=== PATIENT | female | born 1935 | race Caucasian/White ===

== ENCOUNTER 2016-08-17 10:21 | Day surgery (SDC) | payer OTHER ==
[~2016-08-17] VITALS: Ht 170.2 cm; Wt 84.8 kg
[~2016-08-17 10:21] MED LIST: ADULT LOW DOSE81 M1 PO; AROMASIN25 MG PO; ASCORBIC ACID250 MG PO; ASCORBIC ACID500 M3 PO; ASPIR-LOW81 MG PO; ASPIRIN81 M1 PO; ATIVAN0.5 MG PO; CARVEDILOL3.125 MG PO; CEPHALEXIN500 MG PO; CLOPIDOGREL75 MG PO; COREG25 M1 PO; COREG3.125 M1 PO; COREG6.25 M1 PO; FEMARA2.5 MG PO; FLOVENT 11120 INHALA IH; FOLIC ACID1 MG PO; FUROSEMIDE20 MG PO; GABAPENTIN100 MG PO; GLIPIZIDE5 MG PO; GLUCOPHAGE1000 MG PO; GLUCOTROL5 MG PO; Gabapentin PO; HYDROCODON-ACE1 EAC7 PO; IMODIUM MS REL1 EACH PO; K-DUR20 MEQ PO; KLOR-CON 1010 ME1 PO; LASIX40 MG PO; LEVOFLOXACIN250 MG PO; LEVOFLOXACIN750 MG PO; LISINOPRIL2.5 MG PO; LORAZEPAM0.5 MG PO; LORTAB 5-325 M1 EACH PO; MACROBID100 MG PO; METFORMIN HCL1000 MG PO; METRONIDAZOLE500 MG PO; MICRO-K10 ME2 PO; NEURONTIN100 MG PO; PLAVIX75 MG PO; POTASSIUM CHLO20 ME2 PO; PREDNISOLONE AC15 ML RIGHT EYE; PROAIR HFA8.5 GM IH; SENNA-TIME S T1 EACH PO; SILVADENE20 GM TP; SIMVASTATIN40 MG PO; TAMIFLU75 MG PO; THERAGRAN1 TABLET PO; TRAMADOL HCL50 MG PO; TYLENOL PM1 CAPLET PO; ULTRAM50 MG PO; XALATAN2.5 ML BOTH EYES; XANAX0.5 MG PO; ZANAFLEX4 M1 PO; ZESTRIL2.5 MG PO; ZOCOR40 MG PO; ZOCOR5 MG PO
[2016-08-17 11:25] LABS: POINT-OF-CARE METER ID UU14174212
[2016-08-17] MEDS ORDERED: GLIPIZIDE5 MG PO (11:40)
== END 2016-08-17 12:56 | disposition home or self-care (01) ==
LOC: PAIN 10:21 → SDC 11:00 → PAIN 12:56
PROVIDERS: Anesthesiology Pain Medicine
PROC: 015B3ZZ Destruction of Lumbar Nerve, Percutaneous Approach (ICD-10-PCS; principal; 2016-08-17)
DX: M47.896 Other spondylosis, lumbar region (principal); M54.5 Low back pain; F41.1 Generalized anxiety disorder; J44.9 Chronic obstructive pulmonary disease, unspecified; I50.9 Heart failure, unspecified; E11.9 Type 2 diabetes mellitus without complications; F17.200 Nicotine dependence, unspecified, uncomplicated
CPT/HCPCS: 82948; J1030; J2250; J3010; S0020

== ENCOUNTER 2016-09-01 16:55 | Inpatient (IN) | payer OTHER ==
[~2016-09-01] VITALS: Ht 170.2 cm; Wt 86.0 kg
[2016-09-01 17:53] LABS: HEMATOCRIT 44.6 % (36.0-46.0); MCH 30.3 PG (29.0-34.0); MCHC 32.3 G/DL (30.0-36.0); MCV 93.9 FL (83-99); MEAN PLAT.VOLUME 9.9 uM^3 (9.5-12.4); PLATELET COUNT 219 K/uL (156-360); RBC DIS.WIDTH-CV 14.3 % (11.8-14.6); RBC DIS.WIDTH-SD 49.9 % (39-53); RED BLOOD COUNT 4.75 M/uL (3.80-5.20); WHITE BLOOD COUNT 15.4 K/uL (4.1-10.2)
[2016-09-01 18:03] LABS: CHLORIDE 104 mEq/L (99-109); POTASSIUM 4.3 mEq/L (3.7-5.4); SODIUM 137 mEq/L (136-147)
[2016-09-01 18:05] LABS: GLUCOSE 172 mg/dL (70-99)
[2016-09-01 18:07] LABS: ANION GAP 12 MEQ/L (2-14)
[2016-09-01 18:09] LABS: GFR ESTIMATE (CALCULATED) 42 mL/min/
[2016-09-01 18:10] LABS: UREA NITROGEN (BUN) 26 mg/dL (9-23)
[2016-09-01 18:47] LABS: ADD MIUA? YES; BILIRUBIN SMALL; BLOOD NEGATIVE; COLOR AMBER ((YELLOW)); GLUCOSE (STRIP) NEGATIVE; KETONES 5; LEUKOCYTES SMALL; NITRITE NEGATIVE; PROTEIN (STRIP) 30; SPECIFIC GRAVITY 1.025 (1.000-1.030)
[2016-09-01 18:48] LABS: TOTAL BILIRUBIN 0.4 mg/dL (0.0-1.0)
[2016-09-01 18:49] LABS: ALKALINE PHOSPHATASE 78 IU/L (3-129)
[2016-09-01 18:52] LABS: DIRECT BILIRUBIN 0.2 mg/dL (0.0-0.3)
[2016-09-01 18:53] LABS: BACTERIA 2+ /HPF; EPITHELIAL CELLS 2+ /HPF; MUCUS 1+ /LPF; UCUL ADDED? YES; WHITE BLOOD CELLS 20-30 /HPF (0-5)
[2016-09-01] MEDS ORDERED: ZOCOR20 MG PO (22:01)
[2016-09-01] MEDS ORDERED: LOMOTIL TABLET1 EACH PO (22:02)
[2016-09-01] MEDS ORDERED: ATIVAN0.5 MG PO (22:04)
[2016-09-01] MEDS ORDERED: ZANAFLEX2 MG PO (22:05)
[2016-09-01] MEDS ORDERED: COREG3.125 M1 PO (22:05)
[2016-09-01 23:12] VITALS: BP 84/45
[2016-09-02 01:27] LABS: BASOPHIL COUNT 0.1 K/uL (0-0.1); EOSINOPHIL (%) 1.8 % (0-5); EOSINOPHIL COUNT 0.2 K/uL (0-0.3); HEMATOCRIT 41.5 % (36.0-46.0); IMMATURE GRANULOCYTE (%) 0.5 % (0.0-0.7); IMMATURE GRANULOCYTE COUNT 0.1 K/uL; INSTRUMENT ABS NEUTROPHIL CT 8.9 K/uL; MCH 30.8 PG (29.0-34.0); MCHC 32.5 G/DL (30.0-36.0); MCV 94.7 FL (83-99); MEAN PLAT.VOLUME 10.3 uM^3 (9.5-12.4); MONOCYTE (%) 5.6 % (3-12); MONOCYTE COUNT 0.7 K/uL (0-0.8); NEUTROPHIL (%) 68.7 % (45-76); NEUTROPHIL COUNT 8.9 K/uL (1.8-6.4); PLATELET COUNT 213 K/uL (156-360); RBC DIS.WIDTH-CV 14.4 % (11.8-14.6); RBC DIS.WIDTH-SD 50.1 % (39-53); RED BLOOD COUNT 4.38 M/uL (3.80-5.20)
[2016-09-02 03:42] LABS: POINT-OF-CARE METER ID UU14149397
[2016-09-02 04:36] VITALS: BP 73/39
[2016-09-02 05:15] VITALS: BP 86/48
[2016-09-02 06:19] LABS: BASOPHIL COUNT 0.1 K/uL (0-0.1); EOSINOPHIL (%) 3.1 % (0-5); EOSINOPHIL COUNT 0.3 K/uL (0-0.3); IMMATURE GRANULOCYTE (%) 0.6 % (0.0-0.7); IMMATURE GRANULOCYTE COUNT 0.1 K/uL; INSTRUMENT ABS NEUTROPHIL CT 5.6 K/uL; LYMPHOCYTE COUNT 2.4 K/uL (1.0-2.8); MCH 30.1 PG (29.0-34.0); MCHC 32.4 G/DL (30.0-36.0); MCV 92.9 FL (83-99); MEAN PLAT.VOLUME 9.8 uM^3 (9.5-12.4); MONOCYTE (%) 7.7 % (3-12); MONOCYTE COUNT 0.7 K/uL (0-0.8); NEUTROPHIL (%) 61.3 % (45-76); NEUTROPHIL COUNT 5.6 K/uL (1.8-6.4); PLATELET COUNT 179 K/uL (156-360); RBC DIS.WIDTH-CV 14.4 % (11.8-14.6); RED BLOOD COUNT 4.09 M/uL (3.80-5.20); WHITE BLOOD COUNT 9.1 K/uL (4.1-10.2)
[2016-09-02 06:25] LABS: CHLORIDE 114 mEq/L (99-109); POTASSIUM 3.9 mEq/L (3.7-5.4); SODIUM 141 mEq/L (136-147)
[2016-09-02 06:27] LABS: GLUCOSE 142 mg/dL (70-99)
[2016-09-02 06:28] LABS: ANION GAP 9 MEQ/L (2-14)
[2016-09-02 06:30] LABS: TOTAL BILIRUBIN 0.3 mg/dL (0.0-1.0)
[2016-09-02 06:31] LABS: ALKALINE PHOSPHATASE 58 IU/L (3-129); GFR ESTIMATE (CALCULATED) > 59 mL/min/
[2016-09-02 06:32] LABS: UREA NITROGEN (BUN) 17 mg/dL (9-23)
[2016-09-02 06:50] LABS: POINT-OF-CARE METER ID UU14149397
[2016-09-02 08:08] VITALS: BP 91/50
[2016-09-02 12:00] VITALS: BP 90/50
[2016-09-02 15:18] LABS: BASOPHIL COUNT 0.1 K/uL (0-0.1); EOSINOPHIL (%) 1.9 % (0-5); EOSINOPHIL COUNT 0.2 K/uL (0-0.3); HEMATOCRIT 37.6 % (36.0-46.0); IMMATURE GRANULOCYTE (%) 0.4 % (0.0-0.7); INSTRUMENT ABS NEUTROPHIL CT 4.8 K/uL; LYMPHOCYTE COUNT 2.3 K/uL (1.0-2.8); MCH 30.6 PG (29.0-34.0); MCHC 32.2 G/DL (30.0-36.0); MCV 94.9 FL (83-99); MEAN PLAT.VOLUME 9.9 uM^3 (9.5-12.4); MONOCYTE (%) 9.4 % (3-12); MONOCYTE COUNT 0.8 K/uL (0-0.8); NEUTROPHIL (%) 59.2 % (45-76); NEUTROPHIL COUNT 4.8 K/uL (1.8-6.4); PLATELET COUNT 173 K/uL (156-360); RBC DIS.WIDTH-CV 14.6 % (11.8-14.6); RED BLOOD COUNT 3.96 M/uL (3.80-5.20); WHITE BLOOD COUNT 8.1 K/uL (4.1-10.2)
[2016-09-02 15:56] VITALS: BP 100/53
[2016-09-02 16:36] LABS: POINT-OF-CARE METER ID UU14149397
[2016-09-02 18:46] LABS: BASOPHIL COUNT 0.1 K/uL (0-0.1); EOSINOPHIL (%) 2.5 % (0-5); EOSINOPHIL COUNT 0.2 K/uL (0-0.3); HEMATOCRIT 39.6 % (36.0-46.0); IMMATURE GRANULOCYTE (%) 0.4 % (0.0-0.7); INSTRUMENT ABS NEUTROPHIL CT 4.2 K/uL; LYMPHOCYTE COUNT 2.6 K/uL (1.0-2.8); MCH 30.5 PG (29.0-34.0); MCHC 32.1 G/DL (30.0-36.0); MEAN PLAT.VOLUME 10.1 uM^3 (9.5-12.4); MONOCYTE (%) 8.4 % (3-12); MONOCYTE COUNT 0.7 K/uL (0-0.8); NEUTROPHIL (%) 54.4 % (45-76); NEUTROPHIL COUNT 4.2 K/uL (1.8-6.4); PLATELET COUNT 187 K/uL (156-360); RBC DIS.WIDTH-CV 14.6 % (11.8-14.6); RBC DIS.WIDTH-SD 50.5 % (39-53); RED BLOOD COUNT 4.17 M/uL (3.80-5.20); WHITE BLOOD COUNT 7.7 K/uL (4.1-10.2)
[2016-09-02 20:43] VITALS: BP 89/56
[2016-09-03] VITALS (7 sets, daily range): BP systolic 87–119; BP diastolic 51–77
[2016-09-03 06:01] LABS: HEMATOCRIT 39.5 % (36.0-46.0); MCH 30.5 PG (29.0-34.0); MCHC 32.2 G/DL (30.0-36.0); MEAN PLAT.VOLUME 10.1 uM^3 (9.5-12.4); PLATELET COUNT 181 K/uL (156-360); RBC DIS.WIDTH-CV 14.5 % (11.8-14.6); RBC DIS.WIDTH-SD 50.6 % (39-53); RED BLOOD COUNT 4.16 M/uL (3.80-5.20)
[2016-09-03 06:24] LABS: ANION GAP 7 MEQ/L (2-14); CHLORIDE 116 MEQ/L (99-109); GFR ESTIMATE (CALCULATED) > 59 mL/min/; GLUCOSE 122 mg/dL (70-99); POTASSIUM 3.9 MEQ/L (3.7-5.4); SAMPLE HEMOLYSIS CHECK 0; SAMPLE ICTERIC CHECK 0; SAMPLE LIPEMIA CHECK 0; SODIUM 144 MEQ/L (136-147); UREA NITROGEN (BUN) 9 mg/dL (9-23)
[2016-09-03 07:07] LABS: POINT-OF-CARE METER ID UU14149397
[2016-09-03 12:12] LABS: POINT-OF-CARE METER ID UU14149397
[2016-09-03 15:55] LABS: POINT-OF-CARE METER ID UU14149397
[2016-09-04 03:17] LABS: INTERNAL CONTROL VALID? YES
[2016-09-04 03:40] LABS: C DIFF TOXIN NEGATIVE (NEGATIVE)
[2016-09-04 03:46] LABS: PROBE CHECK PASS; SPECIMEN PROCESSING CONTROL PASS
[2016-09-04 05:36] VITALS: BP 107/67
[2016-09-04 05:40] LABS: HEMATOCRIT 37.1 % (36.0-46.0); MCH 30.6 PG (29.0-34.0); MCHC 32.6 G/DL (30.0-36.0); MCV 93.7 FL (83-99); MEAN PLAT.VOLUME 10.2 uM^3 (9.5-12.4); PLATELET COUNT 173 K/uL (156-360); RBC DIS.WIDTH-CV 14.4 % (11.8-14.6); RBC DIS.WIDTH-SD 49.6 % (39-53); RED BLOOD COUNT 3.96 M/uL (3.80-5.20); WHITE BLOOD COUNT 7.4 K/uL (4.1-10.2)
[2016-09-04 06:06] LABS: ANION GAP 10 MEQ/L (2-14); CHLORIDE 115 MEQ/L (99-109); GFR ESTIMATE (CALCULATED) > 59 mL/min/; GLUCOSE 114 mg/dL (70-99); POTASSIUM 3.3 MEQ/L (3.7-5.4); SAMPLE HEMOLYSIS CHECK 0; SAMPLE ICTERIC CHECK 0; SAMPLE LIPEMIA CHECK 0; SODIUM 143 MEQ/L (136-147); UREA NITROGEN (BUN) 6 mg/dL (9-23)
[2016-09-04 06:19] LABS: POINT-OF-CARE METER ID UU14188577
[2016-09-04 08:25] VITALS: BP 103/56
[2016-09-04 11:53] LABS: POINT-OF-CARE METER ID UU14188577
[2016-09-04 15:37] LABS: POINT-OF-CARE METER ID UU13113819
[2016-09-04 16:26] VITALS: BP 94/61
[2016-09-04 20:19] VITALS: BP 188/89
[2016-09-04 20:25] VITALS: BP 96/62
[2016-09-04 23:56] VITALS: BP 103/64
[2016-09-05 06:39] LABS: POINT-OF-CARE METER ID UU14188577
[2016-09-05 07:21] VITALS: BP 138/75
[2016-09-05] MEDS ORDERED: FLAGYL500 MG PO (10:32)
[2016-09-05 11:25] LABS: HEMATOCRIT 38.8 % (36.0-46.0); MCH 30.2 PG (29.0-34.0); MCHC 32.2 G/DL (30.0-36.0); MCV 93.7 FL (83-99); MEAN PLAT.VOLUME 10.1 uM^3 (9.5-12.4); NRBC (%) 0.2 /100 WBC (0-0); PLATELET COUNT 207 K/uL (156-360); RBC DIS.WIDTH-CV 14.8 % (11.8-14.6); RBC DIS.WIDTH-SD 51.1 % (39-53); RED BLOOD COUNT 4.14 M/uL (3.80-5.20); WHITE BLOOD COUNT 8.9 K/uL (4.1-10.2)
[2016-09-05 11:55] LABS: POINT-OF-CARE METER ID UU14188577
[2016-09-05 11:56] LABS: ANION GAP 9 MEQ/L (2-14); CHLORIDE 114 MEQ/L (99-109); POTASSIUM 3.2 MEQ/L (3.7-5.4); SAMPLE HEMOLYSIS CHECK 0; SAMPLE ICTERIC CHECK 0; SAMPLE LIPEMIA CHECK 0; SODIUM 141 MEQ/L (136-147)
[2016-09-05 12:04] LABS: GFR ESTIMATE (CALCULATED) > 59 mL/min/; UREA NITROGEN (BUN) 6 mg/dL (9-23)
[2016-09-05 12:05] LABS: GLUCOSE 179 mg/dL (70-99)
== END 2016-09-05 16:15 | disposition home or self-care (01) | DRG 872 ==
LOC: EME 16:55 → 3EAST 21:57 → EDOF 21:57 → 3EAST 22:49
PROVIDERS: Emergency Medicine; Internal Medicine; Internal Medicine Gastroenterology
DX: A41.9 Sepsis, unspecified organism (principal); R65.20 Severe sepsis without septic shock; K52.9 Noninfective gastroenteritis and colitis, unspecified; N39.0 Urinary tract infection, site not specified; K55.1 Chronic vascular disorders of intestine; K92.1 Melena; N17.9 Acute kidney failure, unspecified; I13.0 Hypertensive heart and chronic kidney disease with heart failure and stage 1 through stage 4 chronic kidney disease, or unspecified chronic kidney disease; I50.9 Heart failure, unspecified; E11.22 Type 2 diabetes mellitus with diabetic chronic kidney disease; N18.3 Chronic kidney disease, stage 3 (moderate); I25.10 Atherosclerotic heart disease of native coronary artery without angina pectoris; E78.5 Hyperlipidemia, unspecified; F41.9 Anxiety disorder, unspecified; E78.00 Pure hypercholesterolemia, unspecified; J44.9 Chronic obstructive pulmonary disease, unspecified; G89.29 Other chronic pain; I71.4 Abdominal aortic aneurysm, without rupture; Z66 Do not resuscitate; K57.30 Diverticulosis of large intestine without perforation or abscess without bleeding; D12.5 Benign neoplasm of sigmoid colon; K62.1 Rectal polyp; F17.210 Nicotine dependence, cigarettes, uncomplicated; K64.8 Other hemorrhoids; Z85.3 Personal history of malignant neoplasm of breast; Z85.42 Personal history of malignant neoplasm of other parts of uterus; Z95.1 Presence of aortocoronary bypass graft; I25.2 Old myocardial infarction; Z79.82 Long term (current) use of aspirin; Z88.1 Allergy status to other antibiotic agents
CPT/HCPCS: 74177; 80048; 80053; 80069; 80076; 81003; 82948; 83605; 83630; 85025; 85025 91; 85027; 86850; 86900; 86901; 87040; 87086; 87177; 87493; 87506; 88305; 94640; 94640 76; 99202; 99281; 99285; J0696; J1200; J1815; J1956; J2405; J2920; J7030; J7040; J7050; S0028; S0030

== ENCOUNTER 2016-11-30 11:13 | Day surgery (SDC) | payer OTHER ==
[~2016-11-30] VITALS: Ht 168.9 cm; Wt 83.0 kg
[~2016-11-30 11:13] MED LIST changes: +FLAGYL500 MG PO; +GLUCOPHAGE XR750 MG PO; +K-DUR10 MEQ PO; +LOMOTIL TABLET1 EACH PO; +ZANAFLEX2 MG PO; +ZANTAC150 MG PO; +ZOCOR20 MG PO
[2016-11-30 12:33] LABS: POINT-OF-CARE METER ID UU14174212; POINT-OF-CARE USER ID AHSRSCSLC11
== END 2016-11-30 13:20 | disposition home or self-care (01) ==
LOC: PAIN 11:13 → SDC 11:45 → PAIN 13:20
PROVIDERS: Anesthesiology Pain Medicine
DX: M46.1 Sacroiliitis, not elsewhere classified (principal); M53.3 Sacrococcygeal disorders, not elsewhere classified; M47.816 Spondylosis without myelopathy or radiculopathy, lumbar region; M54.5 Low back pain; J44.9 Chronic obstructive pulmonary disease, unspecified; E11.9 Type 2 diabetes mellitus without complications; K21.9 Gastro-esophageal reflux disease without esophagitis; F41.9 Anxiety disorder, unspecified; Z85.3 Personal history of malignant neoplasm of breast; F17.210 Nicotine dependence, cigarettes, uncomplicated; E78.5 Hyperlipidemia, unspecified; I25.5 Ischemic cardiomyopathy; M54.6 Pain in thoracic spine; Z79.84 Long term (current) use of oral hypoglycemic drugs; Z79.891 Long term (current) use of opiate analgesic; Z79.899 Other long term (current) drug therapy; M85.88 Other specified disorders of bone density and structure, other site
CPT/HCPCS: 82948; J1030; J2250; J3010; S0020

== ENCOUNTER 2017-02-14 22:44 | Emergency (ER) | payer OTHER ==
[~2017-02-14] VITALS: Ht 170.2 cm; Wt 82.2 kg
[2017-02-15 00:01] LABS: ADD MIUA? YES; BILIRUBIN NEGATIVE; BLOOD NEGATIVE; COLOR YELLOW ((YELLOW)); GLUCOSE (STRIP) NEGATIVE; KETONES NEGATIVE; LEUKOCYTES SMALL; NITRITE POSITIVE; PROTEIN (STRIP) NEGATIVE; SPECIFIC GRAVITY 1.015 (1.000-1.030); UROBILINOGEN 0.2 MG/DL (0.2-1.0)
[2017-02-15 00:09] LABS: BASOPHIL COUNT 0.1 K/uL (0-0.1); EOSINOPHIL (%) 3.2 % (0-5); EOSINOPHIL COUNT 0.3 K/uL (0-0.3); HEMATOCRIT 39.3 % (36.0-46.0); IMMATURE GRANULOCYTE (%) 0.5 % (0.0-0.7); INSTRUMENT ABS NEUTROPHIL CT 4.6 K/uL; LYMPHOCYTE COUNT 2.4 K/uL (1.0-2.8); MCH 31.7 PG (29.0-34.0); MCHC 33.6 G/DL (30.0-36.0); MCV 94.2 FL (83-99); MONOCYTE (%) 8.5 % (3-12); MONOCYTE COUNT 0.7 K/uL (0-0.8); NEUTROPHIL (%) 56.8 % (45-76); NEUTROPHIL COUNT 4.6 K/uL (1.8-6.4); PLATELET COUNT 247 K/uL (156-360); RBC DIS.WIDTH-CV 14.6 % (11.8-14.6); RBC DIS.WIDTH-SD 50.7 % (39-53); RED BLOOD COUNT 4.17 M/uL (3.80-5.20); WHITE BLOOD COUNT 8.1 K/uL (4.1-10.2)
[2017-02-15 00:21] LABS: CHLORIDE 109 mEq/L (99-109); POTASSIUM 4.2 mEq/L (3.7-5.4); SODIUM 142 mEq/L (136-147)
[2017-02-15 00:23] LABS: GLUCOSE 139 mg/dL (70-99)
[2017-02-15 00:23] LABS: BACTERIA RARE /HPF; EPITHELIAL CELLS 1+ /HPF; MUCUS NONE SEEN /LPF; RED BLOOD CELLS 0-5 /HPF (0-5); UCUL ADDED? YES; WHITE BLOOD CELLS 20-30 /HPF (0-5)
[2017-02-15 00:24] LABS: ANION GAP 10 MEQ/L (2-14)
[2017-02-15 00:25] LABS: TOTAL BILIRUBIN 0.3 mg/dL (0.0-1.0)
[2017-02-15 00:26] LABS: ALKALINE PHOSPHATASE 53 IU/L (3-129)
[2017-02-15 00:27] LABS: GFR ESTIMATE (CALCULATED) 46 mL/min/
[2017-02-15 00:28] LABS: UREA NITROGEN (BUN) 20 mg/dL (9-23)
[2017-02-15] MEDS ORDERED: LIDOCAINE700 MG TP (02:27)
[2017-02-15] MEDS ORDERED: MACROBID100 MG PO (02:27)
[2017-02-15] MEDS ORDERED: NORCO 5/3251 TABLET PO (02:27)
[2017-02-15] MEDS ORDERED: TYLENOL WITH C1 EACH PO (02:28)
[2017-02-15 03:02] VITALS: BP 95/58
== END 2017-02-15 03:03 | disposition home or self-care (01) ==
LOC: EME 22:44
PROVIDERS: Emergency Medicine
DX: N39.0 Urinary tract infection, site not specified (principal); I71.4 Abdominal aortic aneurysm, without rupture; E78.5 Hyperlipidemia, unspecified; E11.9 Type 2 diabetes mellitus without complications; M19.90 Unspecified osteoarthritis, unspecified site; K58.9 Irritable bowel syndrome, unspecified; J45.909 Unspecified asthma, uncomplicated; Z85.3 Personal history of malignant neoplasm of breast; Z95.1 Presence of aortocoronary bypass graft; Z79.82 Long term (current) use of aspirin; Z79.84 Long term (current) use of oral hypoglycemic drugs; F17.200 Nicotine dependence, unspecified, uncomplicated
CPT/HCPCS: 71020; 74177; 80053; 81003; 85025; 93005; 99281; 99284; J3010; J7030

== ENCOUNTER 2017-03-05 07:48 | Day surgery (SDC) | payer OTHER ==
[~2017-03-05] VITALS: Ht 170.2 cm; Wt 82.1 kg
[~2017-03-05 07:48] MED LIST changes: +DUREZOL 0.100 DROP/5 LEFT EYE; +ILEVRO1.7 ML LEFT EYE; +LIDOCAINE700 MG TP; +LIDOCARE1 EACH TP; +NORCO 5/3251 TABLET PO; +TYLENOL WITH C1 EACH PO
[2017-03-05 08:30] LABS: POINT-OF-CARE METER ID UU14174212
== END 2017-03-05 10:10 | disposition home or self-care (01) ==
LOC: PAIN 07:48
PROVIDERS: Anesthesiology Pain Medicine
DX: M47.816 Spondylosis without myelopathy or radiculopathy, lumbar region (principal); M54.5 Low back pain; G89.29 Other chronic pain; I71.4 Abdominal aortic aneurysm, without rupture; F17.200 Nicotine dependence, unspecified, uncomplicated; F41.8 Other specified anxiety disorders; E11.9 Type 2 diabetes mellitus without complications; J44.9 Chronic obstructive pulmonary disease, unspecified; K21.9 Gastro-esophageal reflux disease without esophagitis; E78.5 Hyperlipidemia, unspecified; Z95.1 Presence of aortocoronary bypass graft; Z79.84 Long term (current) use of oral hypoglycemic drugs; Z79.82 Long term (current) use of aspirin; Z79.891 Long term (current) use of opiate analgesic; Z85.3 Personal history of malignant neoplasm of breast
CPT/HCPCS: 82948; J1030; J2250; J3010; S0020

== ENCOUNTER → 2017-03-19 | Outpatient (CLI) | payer OTHER | END | disposition home or self-care (01) | LOC: NUC 11:00 | DX: M19.011 Primary osteoarthritis, right shoulder (principal) | CPT/HCPCS: 78306; A9503 ==

== ENCOUNTER 2017-05-14 07:57 | Inpatient (IN) | payer OTHER ==
[~2017-05-14] VITALS: Ht 165.1 cm; Wt 82.7 kg
[~2017-05-14 07:57] MED LIST changes: -FLOVENT 11120 INHALA IH; +FLOVENT 22120 INHALA IH
[2017-05-14 08:22] LABS: POINT-OF-CARE METER ID UU14174212
[2017-05-14 10:41] LABS: BASOPHIL COUNT 0.1 K/uL (0-0.1); EOSINOPHIL (%) 2.6 % (0-5); EOSINOPHIL COUNT 0.2 K/uL (0-0.3); HEMATOCRIT 39.4 % (36.0-46.0); IMMATURE GRANULOCYTE (%) 0.6 % (0.0-0.7); IMMATURE GRANULOCYTE COUNT 0.1 K/uL; INSTRUMENT ABS NEUTROPHIL CT 5.5 K/uL; MCH 31.3 PG (29.0-34.0); MCHC 32.7 G/DL (30.0-36.0); MCV 95.6 FL (83-99); MEAN PLAT.VOLUME 9.7 uM^3 (9.5-12.4); MONOCYTE COUNT 0.6 K/uL (0-0.8); NEUTROPHIL COUNT 5.5 K/uL (1.8-6.4); PLATELET COUNT 219 K/uL (156-360); RBC DIS.WIDTH-CV 13.8 % (11.8-14.6); RED BLOOD COUNT 4.12 M/uL (3.80-5.20); WHITE BLOOD COUNT 8.5 K/uL (4.1-10.2)
[2017-05-14 10:44] LABS: ADD MIUA? YES; BILIRUBIN NEGATIVE; BLOOD SMALL; COLOR YELLOW ((YELLOW)); GLUCOSE (STRIP) NEGATIVE; KETONES NEGATIVE; LEUKOCYTES LARGE; NITRITE POSITIVE; PROTEIN (STRIP) 30; SPECIFIC GRAVITY 1.013 (1.000-1.030); UROBILINOGEN 0.2 MG/DL (0.2-1.0)
[2017-05-14 10:50] LABS: CHLORIDE 109 mEq/L (99-109); POTASSIUM 4.2 mEq/L (3.7-5.4); SODIUM 141 mEq/L (136-147)
[2017-05-14 10:51] LABS: GLUCOSE 125 mg/dL (70-99)
[2017-05-14 10:53] LABS: ANION GAP 10 MEQ/L (2-14)
[2017-05-14 10:55] LABS: GFR ESTIMATE (CALCULATED) > 59 mL/min/
[2017-05-14 10:56] LABS: UREA NITROGEN (BUN) 16 mg/dL (9-23)
[2017-05-14 10:57] LABS: BACTERIA RARE /HPF; EPITHELIAL CELLS 1+ /HPF; MUCUS TRACE /LPF; RED BLOOD CELLS 0-5 /HPF (0-5); WHITE BLOOD CELLS TNTC /HPF (0-5)
[2017-05-14 11:01] LABS: TROP-I INTERPRETATION NEGATIVE; TROPONIN-I 0.02 ng/mL (0.0-0.30)
[2017-05-14 18:30] LABS: POINT-OF-CARE METER ID UU14162513
[2017-05-14 20:30] VITALS: BP 133/75
[2017-05-14 21:28] LABS: POINT-OF-CARE METER ID UU14162513
[2017-05-15 00:24] VITALS: BP 110/59
[2017-05-15 04:50] VITALS: BP 127/89
[2017-05-15 07:06] VITALS: BP 139/99
[2017-05-15 12:22] LABS: POINT-OF-CARE METER ID UU14162513
[2017-05-15 12:27] VITALS: BP 139/69
[2017-05-15 17:49] LABS: POINT-OF-CARE METER ID UU14162513
[2017-05-15 17:53] VITALS: BP 127/67
[2017-05-15 19:00] VITALS: BP 149/73
[2017-05-15 21:15] LABS: POINT-OF-CARE METER ID UU14162513
[2017-05-16] VITALS: BP 122/57
[2017-05-16 03:28] VITALS: BP 133/7
[2017-05-16 08:00] VITALS: BP 157/77
[2017-05-16 08:14] LABS: POINT-OF-CARE METER ID UU13113831
[2017-05-16] MEDS ORDERED: LEVAQUIN250 MG PO (09:20)
== END 2017-05-16 11:39 | disposition home or self-care (01) | DRG 312 ==
LOC: PAIN 07:57 → EME 07:57 → EDOF 12:15 → 5WEST 12:15 → ENRESERV 12:17 → EDOF 12:19 → ENRESERV 16:19 → 5WEST 17:35
PROVIDERS: Anesthesiology Pain Medicine; Emergency Medicine; Internal Medicine
DX: I95.1 Orthostatic hypotension (principal); I11.0 Hypertensive heart disease with heart failure; I25.5 Ischemic cardiomyopathy; I50.9 Heart failure, unspecified; N39.0 Urinary tract infection, site not specified; I25.10 Atherosclerotic heart disease of native coronary artery without angina pectoris; B96.1 Klebsiella pneumoniae [K. pneumoniae] as the cause of diseases classified elsewhere; G89.4 Chronic pain syndrome; F41.9 Anxiety disorder, unspecified; E78.5 Hyperlipidemia, unspecified; M54.9 Dorsalgia, unspecified; Z66 Do not resuscitate; F17.210 Nicotine dependence, cigarettes, uncomplicated; Z85.3 Personal history of malignant neoplasm of breast; Z90.710 Acquired absence of both cervix and uterus; Z90.49 Acquired absence of other specified parts of digestive tract; Z95.1 Presence of aortocoronary bypass graft; Z79.82 Long term (current) use of aspirin; Z79.899 Other long term (current) drug therapy; Z79.84 Long term (current) use of oral hypoglycemic drugs; Z80.0 Family history of malignant neoplasm of digestive organs; Z87.440 Personal history of urinary (tract) infections; Z88.1 Allergy status to other antibiotic agents; Z87.442 Personal history of urinary calculi; Z85.42 Personal history of malignant neoplasm of other parts of uterus; K58.9 Irritable bowel syndrome, unspecified
CPT/HCPCS: 80048; 81003; 82948; 84484; 85025; 87077; 87086; 87186; 90686; 94640; 94640 76; 99202; 99281; 99285; G0378; J1650; J2250; J3010; J7030; J7120; S0028

== ENCOUNTER 2017-06-07 13:17 | Day surgery (SDC) | payer OTHER ==
[~2017-06-07] VITALS: Ht 170.2 cm; Wt 82.1 kg
[~2017-06-07 13:17] MED LIST changes: +LEVAQUIN250 MG PO; +REFRESH LI300 DROP/1 BOTH EYES
[2017-06-07 13:49] LABS: POINT-OF-CARE METER ID UU14174212
== END 2017-06-07 15:15 | disposition home or self-care (01) ==
LOC: PAIN 13:17 → SDC 14:00 → PAIN 15:15
PROVIDERS: Anesthesiology Pain Medicine
DX: M47.816 Spondylosis without myelopathy or radiculopathy, lumbar region (principal); G89.29 Other chronic pain; M54.5 Low back pain; M54.6 Pain in thoracic spine; M79.1 Myalgia; I10 Essential (primary) hypertension; I25.10 Atherosclerotic heart disease of native coronary artery without angina pectoris; E11.9 Type 2 diabetes mellitus without complications; E78.5 Hyperlipidemia, unspecified; F41.8 Other specified anxiety disorders; J43.9 Emphysema, unspecified; K21.9 Gastro-esophageal reflux disease without esophagitis; F17.200 Nicotine dependence, unspecified, uncomplicated; Z85.3 Personal history of malignant neoplasm of breast; Z79.84 Long term (current) use of oral hypoglycemic drugs; Z79.891 Long term (current) use of opiate analgesic; Z95.1 Presence of aortocoronary bypass graft; Z95.5 Presence of coronary angioplasty implant and graft
CPT/HCPCS: 82948; J1030; S0020

== ENCOUNTER 2017-06-14 08:23 | Day surgery (SDC) | payer OTHER ==
[~2017-06-14] VITALS: Ht 167.6 cm; Wt 83.0 kg
[2017-06-14 09:05] LABS: POINT-OF-CARE METER ID UU14174212
== END 2017-06-14 10:04 | disposition home or self-care (01) ==
LOC: PAIN 08:23 → SDC 09:00 → PAIN 10:04
PROVIDERS: Anesthesiology Pain Medicine
DX: M47.816 Spondylosis without myelopathy or radiculopathy, lumbar region (principal); G89.29 Other chronic pain; M54.5 Low back pain; M54.6 Pain in thoracic spine; M53.3 Sacrococcygeal disorders, not elsewhere classified; M79.1 Myalgia; M41.9 Scoliosis, unspecified; I10 Essential (primary) hypertension; F41.8 Other specified anxiety disorders; E11.9 Type 2 diabetes mellitus without complications; J43.9 Emphysema, unspecified; K21.9 Gastro-esophageal reflux disease without esophagitis; I25.5 Ischemic cardiomyopathy; E78.5 Hyperlipidemia, unspecified; F17.200 Nicotine dependence, unspecified, uncomplicated; Z79.82 Long term (current) use of aspirin; Z79.891 Long term (current) use of opiate analgesic; Z79.84 Long term (current) use of oral hypoglycemic drugs; Z95.5 Presence of coronary angioplasty implant and graft; Z95.1 Presence of aortocoronary bypass graft; Z85.3 Personal history of malignant neoplasm of breast
CPT/HCPCS: 82948; J1030; J1885; J3010; S0020

== ENCOUNTER 2018-01-15 10:26 | Inpatient (IN) | payer OTHER ==
[~2018-01-15] VITALS: Ht 170.2 cm; Wt 83.2 kg
[~2018-01-15 10:26] MED LIST changes: +WELLBUTRIN SR150 MG PO
[2018-01-15 11:27] LABS: HEMOGLOBIN 10.4 G/DL (11.9-15.5); MCH 31.3 PG (29.0-34.0); MCHC 32.5 G/DL (30.0-36.0); MCV 96.4 FL (83-99); PLATELET COUNT 266 K/uL (156-360); RBC DIS.WIDTH-CV 15.1 % (11.8-14.6); RBC DIS.WIDTH-SD 53.2 % (39-53); RED BLOOD COUNT 3.32 M/uL (3.80-5.20); WHITE BLOOD COUNT 10.2 K/uL (4.1-10.2)
[2018-01-15 11:41] LABS: ALBUMIN 3.5 g/dL (3.2-4.8); CHLORIDE 104 mEq/L (99-109); POTASSIUM 4.8 mEq/L (3.7-5.4); SODIUM 139 mEq/L (136-147)
[2018-01-15 11:44] LABS: GLUCOSE 243 mg/dL (70-99); TOTAL PROTEIN 6.3 g/dL (6.4-8.3)
[2018-01-15 11:46] LABS: TOTAL BILIRUBIN 0.4 mg/dL (0.0-1.0)
[2018-01-15 11:47] LABS: ALKALINE PHOSPHATASE 92 IU/L (3-129); CREATININE 1.2 mg/dL (0.6-1.3); GFR ESTIMATE (CALCULATED) 46 mL/min/
[2018-01-15 11:48] LABS: UREA NITROGEN (BUN) 21 mg/dL (9-23)
[2018-01-15 11:49] LABS: AST (GOT) 21 IU/L (2-34)
[2018-01-15 11:50] LABS: ALT (GPT) 16 IU/L (3-49)
[2018-01-15 11:52] LABS: TROP-I INTERPRETATION NEGATIVE; TROPONIN-I < 0.01 ng/mL (0.0-0.30)
[2018-01-15 12:53] LABS: APPEARANCE SL.HAZY ((CLEAR)); BILIRUBIN NEGATIVE; BLOOD NEGATIVE; COLOR AMBER ((YELLOW)); GLUCOSE (STRIP) NEGATIVE; KETONES 5; LEUKOCYTES SMALL; NITRITE POSITIVE; PROTEIN (STRIP) 30; SPECIFIC GRAVITY 1.024 (1.000-1.030); UROBILINOGEN 0.2 MG/DL (0.2-1.0)
[2018-01-15 12:56] LABS: BACTERIA NONE SEEN /HPF; EPITHELIAL CELLS 1+ /HPF; HYALINE CASTS 0-5 /LPF; MUCUS TRACE /LPF; RED BLOOD CELLS 0-5 /HPF (0-5); UCUL ADDED? YES; WHITE BLOOD CELLS 20-30 /HPF (0-5)
[2018-01-15] MEDS ORDERED: CARVEDILOL3.125 MG PO (15:17)
[2018-01-15] MEDS ORDERED: BUPROPION HCL100 M1 PO (15:18)
[2018-01-15] MEDS ORDERED: SIMVASTATIN40 MG PO (15:19)
[2018-01-15] MEDS ORDERED: GABAPENTIN100 MG PO (15:21)
[2018-01-15] MEDS ORDERED: RANITIDINE HCL150 MG PO (15:22)
[2018-01-15] MEDS ORDERED: LETROZOLE2.5 MG PO (15:23)
[2018-01-15] MEDS ORDERED: TRAMADOL HCL50 MG PO (15:24)
[2018-01-15] MEDS ORDERED: LATANOPROST2.5 ML BOTH EYES (15:25)
[2018-01-15] MEDS ORDERED: TIZANIDINE HCL2 MG PO (15:26)
[2018-01-15] MEDS ORDERED: ENDOCET 5-3251 EACH PO (15:27)
[2018-01-15] MEDS ORDERED: LASIX40 MG PO (15:45)
[2018-01-15] MEDS ORDERED: LO-DOSE ASPIRIN81 M2 PO (15:46)
[2018-01-15 18:47] LABS: HEMATOCRIT 33.8 % (36.0-46.0); HEMOGLOBIN 11.3 G/DL (11.9-15.5); MCV 95.2 FL (83-99)
[2018-01-15 23:30] VITALS: BP 1141/58; BP 141/58
[2018-01-16 03:20] VITALS: BP 117/59
[2018-01-16 03:50] VITALS: BP 126/58; BP 62/32
[2018-01-16 05:02] LABS: ALBUMIN 3.1 g/dL (3.2-4.8); CHLORIDE 113 mEq/L (99-109); POTASSIUM 4.2 mEq/L (3.7-5.4); SODIUM 143 mEq/L (136-147)
[2018-01-16 05:04] LABS: IRON 40 MCG/DL (35-150); TRANSFERRIN (TIBC) 239.3 mg/dL (215-380); TRANSFERRIN SATUR. 17 % (20-55)
[2018-01-16 05:06] LABS: GLUCOSE 107 mg/dL (70-99); TOTAL PROTEIN 5.2 g/dL (6.4-8.3)
[2018-01-16 05:08] LABS: ALKALINE PHOSPHATASE 82 IU/L (3-129); CREATININE 0.8 mg/dL (0.6-1.3); GFR ESTIMATE (CALCULATED) > 59 mL/min/
[2018-01-16 05:09] LABS: UREA NITROGEN (BUN) 12 mg/dL (9-23)
[2018-01-16 05:10] LABS: AST (GOT) 21 IU/L (2-34)
[2018-01-16 05:11] LABS: ALT (GPT) 16 IU/L (3-49)
[2018-01-16 05:13] LABS: TOTAL BILIRUBIN 0.3 mg/dL (0.0-1.0)
[2018-01-16 05:28] LABS: HEMATOCRIT 29.8 % (36.0-46.0); HEMOGLOBIN 9.8 G/DL (11.9-15.5); MCH 31.2 PG (29.0-34.0); MCHC 32.9 G/DL (30.0-36.0); MCV 94.9 FL (83-99); PLATELET COUNT 220 K/uL (156-360); RBC DIS.WIDTH-SD 52.2 % (39-53); RED BLOOD COUNT 3.14 M/uL (3.80-5.20); WHITE BLOOD COUNT 7.9 K/uL (4.1-10.2)
[2018-01-16 07:45] LABS: FERRITIN 19 NG/ML (10-291)
[2018-01-16 08:48] VITALS: BP 119/63
[2018-01-16 11:06] LABS: INTER. NORMALIZED RATIO ND; PTT ND SEC (25-37)
[2018-01-16 12:05] LABS: INTER. NORMALIZED RATIO 1.2
[2018-01-16 12:08] LABS: PTT 22.6 SEC (25-37)
[2018-01-16 12:25] VITALS: BP 110/90
[2018-01-16 16:56] LABS: STOOL OCCULT BLD 1ST SPECIMEN POSITIVE
[2018-01-16 17:15] VITALS: BP 122/62
[2018-01-16 19:20] VITALS: BP 133/64
[2018-01-17] VITALS (7 sets, daily range): BP systolic 92–138; BP diastolic 51–92
[2018-01-17 00:04] LABS: HEMATOCRIT 31.6 % (36.0-46.0); HEMOGLOBIN 10.6 G/DL (11.9-15.5); MCH 31.6 PG (29.0-34.0); MCHC 33.5 G/DL (30.0-36.0); MCV 94.3 FL (83-99); PLATELET COUNT 235 K/uL (156-360); RBC DIS.WIDTH-CV 15.1 % (11.8-14.6); RED BLOOD COUNT 3.35 M/uL (3.80-5.20)
[2018-01-17 05:34] LABS: BASOPHIL (%) 0.9 % (0-1); BASOPHIL COUNT 0.1 K/uL (0-0.1); EOSINOPHIL (%) 3.6 % (0-5); EOSINOPHIL COUNT 0.3 K/uL (0-0.3); HEMATOCRIT 30.1 % (36.0-46.0); HEMOGLOBIN 9.5 G/DL (11.9-15.5); IMMATURE GRANULOCYTE (%) 0.6 % (0.0-0.7); LYMPHOCYTE (%) 23.1 % (15-42); LYMPHOCYTE COUNT 1.6 K/uL (1.0-2.8); MCH 30.9 PG (29.0-34.0); MCHC 31.6 G/DL (30.0-36.0); MONOCYTE (%) 11.3 % (3-12); MONOCYTE COUNT 0.8 K/uL (0-0.8); NEUTROPHIL (%) 60.5 % (45-76); NEUTROPHIL COUNT 4.2 K/uL (1.8-6.4); PLATELET COUNT 211 K/uL (156-360); RBC DIS.WIDTH-CV 15.2 % (11.8-14.6); RBC DIS.WIDTH-SD 54.7 % (39-53); RED BLOOD COUNT 3.07 M/uL (3.80-5.20); WHITE BLOOD COUNT 6.9 K/uL (4.1-10.2)
[2018-01-17 06:50] LABS: CHLORIDE 115 MEQ/L (99-109); CREATININE 0.9 MG/DL (0.6-1.3); GFR ESTIMATE (CALCULATED) > 59 mL/min/; GLUCOSE 107 mg/dL (70-99); SODIUM 145 MEQ/L (136-147); UREA NITROGEN (BUN) 8 mg/dL (9-23)
[2018-01-17 20:39] LABS: BASOPHIL (%) 0.7 % (0-1); BASOPHIL COUNT 0.1 K/uL (0-0.1); EOSINOPHIL (%) 2.7 % (0-5); EOSINOPHIL COUNT 0.2 K/uL (0-0.3); HEMOGLOBIN 9.6 G/DL (11.9-15.5); IMMATURE GRANULOCYTE (%) 0.7 % (0.0-0.7); LYMPHOCYTE (%) 18.5 % (15-42); LYMPHOCYTE COUNT 1.5 K/uL (1.0-2.8); MCH 31.6 PG (29.0-34.0); MCHC 33.1 G/DL (30.0-36.0); MCV 95.4 FL (83-99); MONOCYTE (%) 8.3 % (3-12); MONOCYTE COUNT 0.7 K/uL (0-0.8); NEUTROPHIL (%) 69.1 % (45-76); NEUTROPHIL COUNT 5.6 K/uL (1.8-6.4); PLATELET COUNT 220 K/uL (156-360); RBC DIS.WIDTH-CV 15.2 % (11.8-14.6); RBC DIS.WIDTH-SD 52.7 % (39-53); RED BLOOD COUNT 3.04 M/uL (3.80-5.20); WHITE BLOOD COUNT 8.1 K/uL (4.1-10.2)
[2018-01-18 04:49] VITALS: BP 139/69
[2018-01-18 06:44] LABS: BASOPHIL (%) 0.8 % (0-1); BASOPHIL COUNT 0.1 K/uL (0-0.1); EOSINOPHIL (%) 4.8 % (0-5); EOSINOPHIL COUNT 0.4 K/uL (0-0.3); HEMATOCRIT 30.6 % (36.0-46.0); HEMOGLOBIN 9.8 G/DL (11.9-15.5); IMMATURE GRANULOCYTE (%) 0.3 % (0.0-0.7); LYMPHOCYTE (%) 22.8 % (15-42); LYMPHOCYTE COUNT 1.8 K/uL (1.0-2.8); MCH 31.2 PG (29.0-34.0); MCV 97.5 FL (83-99); MONOCYTE (%) 12.6 % (3-12); NEUTROPHIL (%) 58.7 % (45-76); NEUTROPHIL COUNT 4.6 K/uL (1.8-6.4); PLATELET COUNT 191 K/uL (156-360); RBC DIS.WIDTH-CV 15.6 % (11.8-14.6); RBC DIS.WIDTH-SD 55.8 % (39-53); RED BLOOD COUNT 3.14 M/uL (3.80-5.20); WHITE BLOOD COUNT 7.9 K/uL (4.1-10.2)
[2018-01-18 07:12] LABS: CHLORIDE 113 MEQ/L (99-109); CREATININE 0.8 MG/DL (0.6-1.3); GFR ESTIMATE (CALCULATED) > 59 mL/min/; POTASSIUM 3.4 MEQ/L (3.7-5.4); SODIUM 145 MEQ/L (136-147); UREA NITROGEN (BUN) 7 mg/dL (9-23)
[2018-01-18 07:29] LABS: GLUCOSE 80 mg/dL (70-99)
[2018-01-18 09:30] VITALS: BP 119/56
[2018-01-18 12:35] VITALS: BP 87/51
[2018-01-18 15:00] VITALS: BP 82/62
[2018-01-18 18:22] LABS: HEMATOCRIT 30.2 % (36.0-46.0); HEMOGLOBIN 9.7 G/DL (11.9-15.5); MCHC 32.1 G/DL (30.0-36.0); MCV 96.5 FL (83-99); PLATELET COUNT 228 K/uL (156-360); RBC DIS.WIDTH-CV 15.3 % (11.8-14.6); RBC DIS.WIDTH-SD 54.3 % (39-53); RED BLOOD COUNT 3.13 M/uL (3.80-5.20)
[2018-01-18 19:22] VITALS: BP 81/49
[2018-01-19 00:18] VITALS: BP 83/51
[2018-01-19 05:17] VITALS: BP 90/56
[2018-01-19 05:39] LABS: BASOPHIL (%) 0.7 % (0-1); BASOPHIL COUNT 0.1 K/uL (0-0.1); EOSINOPHIL COUNT 0.4 K/uL (0-0.3); HEMATOCRIT 27.7 % (36.0-46.0); HEMOGLOBIN 8.9 G/DL (11.9-15.5); IMMATURE GRANULOCYTE (%) 0.3 % (0.0-0.7); LYMPHOCYTE (%) 18.2 % (15-42); LYMPHOCYTE COUNT 1.3 K/uL (1.0-2.8); MCH 30.5 PG (29.0-34.0); MCHC 32.1 G/DL (30.0-36.0); MCV 94.9 FL (83-99); MONOCYTE (%) 9.9 % (3-12); MONOCYTE COUNT 0.7 K/uL (0-0.8); NEUTROPHIL (%) 65.9 % (45-76); NEUTROPHIL COUNT 4.7 K/uL (1.8-6.4); PLATELET COUNT 198 K/uL (156-360); RBC DIS.WIDTH-CV 15.1 % (11.8-14.6); RBC DIS.WIDTH-SD 52.7 % (39-53); RED BLOOD COUNT 2.92 M/uL (3.80-5.20); WHITE BLOOD COUNT 7.1 K/uL (4.1-10.2)
[2018-01-19 06:16] LABS: CHLORIDE 113 MEQ/L (99-109); CREATININE 0.9 MG/DL (0.6-1.3); GFR ESTIMATE (CALCULATED) > 59 mL/min/; GLUCOSE 133 mg/dL (70-99); POTASSIUM 3.8 MEQ/L (3.7-5.4); SODIUM 144 MEQ/L (136-147); UREA NITROGEN (BUN) 4 mg/dL (9-23)
[2018-01-19 07:58] VITALS: BP 80/46
[2018-01-19 11:30] VITALS: BP 97/55
[2018-01-19 16:46] VITALS: BP 91/52
[2018-01-19 19:45] VITALS: BP 98/56
[2018-01-20 00:08] VITALS: BP 84/56
[2018-01-20 03:21] VITALS: BP 86/60
[2018-01-20 05:34] LABS: HEMATOCRIT 27.5 % (36.0-46.0); HEMOGLOBIN 9.4 G/DL (11.9-15.5); MCH 32.3 PG (29.0-34.0); MCHC 34.2 G/DL (30.0-36.0); MCV 94.5 FL (83-99); NRBC (%) 0.4 /100 WBC (0-0); RBC DIS.WIDTH-CV 15.2 % (11.8-14.6); RBC DIS.WIDTH-SD 52.7 % (39-53); RED BLOOD COUNT 2.91 M/uL (3.80-5.20); WHITE BLOOD COUNT 7.8 K/uL (4.1-10.2)
[2018-01-20 06:04] LABS: PLATELET COUNT 196 K/uL (156-360)
[2018-01-20 06:37] LABS: HEMATOLOGY COMMENT 1 SMEAR COMPATIBLE; PLAT.SUFFICIENCY ADEQUATE
[2018-01-20 08:55] VITALS: BP 92/58
[2018-01-20] MEDS ORDERED: PANTOPRAZOLE SO40 MG PO (16:05)
[2018-01-20] MEDS ORDERED: MUPIROCIN15 GM TP ×2 (16:05→16:12)
[2018-01-20] MEDS ORDERED: SUCRALFATE1 GM/10 ML PO (16:05)
[2018-01-20] MEDS ORDERED: [UNRECOGNIZED DRUG - OTHER] TP ×2 (16:05→16:12)
== END 2018-01-20 17:46 | disposition home health service (06) | DRG 378 ==
LOC: EME 10:26 → 4EAST 13:38 → EDOF 13:38 → ENRESERV 20:54 → 4EAST 23:16 → ENPENDDIS 01-20 → 4EAST 01-20 17:46
PROVIDERS: Emergency Medicine; Hospitalist; Internal Medicine; Specialist
PROC: 30233N1 Transfusion of Nonautologous Red Blood Cells into Peripheral Vein, Percutaneous Approach (ICD-10-PCS; principal; 2018-01-15)
PROC: 0W3P8ZZ Control Bleeding in Gastrointestinal Tract, Via Natural or Artificial Opening Endoscopic (ICD-10-PCS; 2018-01-17)
DX: K26.4 Chronic or unspecified duodenal ulcer with hemorrhage (principal); Z66 Do not resuscitate; D50.0 Iron deficiency anemia secondary to blood loss (chronic); L27.0 Generalized skin eruption due to drugs and medicaments taken internally; K31.819 Angiodysplasia of stomach and duodenum without bleeding; I25.5 Ischemic cardiomyopathy; K31.7 Polyp of stomach and duodenum; E86.0 Dehydration; G89.4 Chronic pain syndrome; K29.70 Gastritis, unspecified, without bleeding; E11.9 Type 2 diabetes mellitus without complications; E78.5 Hyperlipidemia, unspecified; J44.9 Chronic obstructive pulmonary disease, unspecified; I71.4 Abdominal aortic aneurysm, without rupture; C77.3 Secondary and unspecified malignant neoplasm of axilla and upper limb lymph nodes; I10 Essential (primary) hypertension; K44.9 Diaphragmatic hernia without obstruction or gangrene; T36.8X5A Adverse effect of other systemic antibiotics, initial encounter; I25.10 Atherosclerotic heart disease of native coronary artery without angina pectoris; F41.9 Anxiety disorder, unspecified; F17.210 Nicotine dependence, cigarettes, uncomplicated; Y92.230 Patient room in hospital as the place of occurrence of the external cause; K57.30 Diverticulosis of large intestine without perforation or abscess without bleeding; Z85.3 Personal history of malignant neoplasm of breast; Z95.1 Presence of aortocoronary bypass graft; Z85.42 Personal history of malignant neoplasm of other parts of uterus; Z17.0 Estrogen receptor positive status [ER+]; Z80.6 Family history of leukemia; Z90.710 Acquired absence of both cervix and uterus; Z79.82 Long term (current) use of aspirin; Z79.899 Other long term (current) drug therapy; Z80.0 Family history of malignant neoplasm of digestive organs; Z88.3 Allergy status to other anti-infective agents
CPT/HCPCS: 70450; 71046; 80048; 80053; 81003; 82272; 82728; 82948; 83540; 84466; 84484; 85014; 85018; 85025; 85025 91; 85027; 85610; 85730; 86850; 86900; 86901; 86920; 87077; 87086 GA; 87186; 93005; 94799; 99281; 99285; C1753; C9113; J1200; J1940; J2405; J3480; J7030; J7040; Q0177

== ENCOUNTER 2018-01-30 17:09 | Inpatient (IN) | payer OTHER ==
[~2018-01-30] VITALS: Ht 170.2 cm; Wt 80.6 kg
[~2018-01-30 17:09] MED LIST changes: +BUPROPION HCL100 M1 PO; +ENDOCET 5-3251 EACH PO; +LATANOPROST2.5 ML BOTH EYES; +LETROZOLE2.5 MG PO; +LO-DOSE ASPIRIN81 M2 PO; +MUPIROCIN15 GM TP; +PANTOPRAZOLE SO40 MG PO; +RANITIDINE HCL150 MG PO; +SUCRALFATE1 GM/10 ML PO; +TIZANIDINE HCL2 MG PO; +[UNRECOGNIZED DRUG - OTHER] TP
[2018-01-30 18:03] LABS: HEMOGLOBIN 8.7 G/DL (11.9-15.5); MCH 30.4 PG (29.0-34.0); MCHC 32.2 G/DL (30.0-36.0); MCV 94.4 FL (83-99); NRBC (%) 0.3 /100 WBC (0-0); RBC DIS.WIDTH-CV 15.7 % (11.8-14.6); RED BLOOD COUNT 2.86 M/uL (3.80-5.20); WHITE BLOOD COUNT 12.8 K/uL (4.1-10.2)
[2018-01-30 18:12] LABS: PLATELET COUNT 308 K/uL (156-360)
[2018-01-30 18:19] LABS: CHLORIDE 105 mEq/L (99-109); POTASSIUM 3.9 mEq/L (3.7-5.4); SODIUM 137 mEq/L (136-147)
[2018-01-30 18:20] LABS: GLUCOSE 150 mg/dL (70-99)
[2018-01-30 18:24] LABS: CREATININE 1.2 mg/dL (0.6-1.3); GFR ESTIMATE (CALCULATED) 46 mL/min/
[2018-01-30 18:25] LABS: UREA NITROGEN (BUN) 19 mg/dL (9-23)
[2018-01-30 20:24] LABS: INTER. NORMALIZED RATIO 1.2
[2018-01-30 20:26] LABS: BASOPHIL (%) 0.4 % (0-1); BASOPHIL COUNT 0.1 K/uL (0-0.1); EOSINOPHIL (%) 1.2 % (0-5); EOSINOPHIL COUNT 0.2 K/uL (0-0.3); HEMATOCRIT 27.3 % (36.0-46.0); HEMOGLOBIN 8.8 G/DL (11.9-15.5); IMMATURE GRANULOCYTE (%) 1.2 % (0.0-0.7); LYMPHOCYTE (%) 12.7 % (15-42); LYMPHOCYTE COUNT 1.6 K/uL (1.0-2.8); MCH 30.3 PG (29.0-34.0); MCHC 32.2 G/DL (30.0-36.0); MCV 94.1 FL (83-99); MONOCYTE (%) 9.8 % (3-12); MONOCYTE COUNT 1.3 K/uL (0-0.8); NEUTROPHIL (%) 74.7 % (45-76); NEUTROPHIL COUNT 9.5 K/uL (1.8-6.4); NRBC (%) 0.2 /100 WBC (0-0); PLATELET COUNT 297 K/uL (156-360); RBC DIS.WIDTH-CV 15.6 % (11.8-14.6); RBC DIS.WIDTH-SD 54.1 % (39-53); WHITE BLOOD COUNT 12.8 K/uL (4.1-10.2)
[2018-01-30 20:27] LABS: PTT 26.7 SEC (25-37)
[2018-01-30 20:28] LABS: TOTAL BILIRUBIN 0.3 mg/dL (0.0-1.0)
[2018-01-30 20:43] LABS: AST (GOT) 45 IU/L (2-34)
[2018-01-30 20:46] LABS: ALBUMIN 3.1 g/dL (3.2-4.8)
[2018-01-30 20:49] LABS: TOTAL PROTEIN 6.3 g/dL (6.4-8.3)
[2018-01-30 20:51] LABS: ALKALINE PHOSPHATASE 195 IU/L (3-129)
[2018-01-30 20:54] LABS: DIRECT BILIRUBIN 0.2 mg/dL (0.0-0.3)
[2018-01-30 20:55] LABS: ALT (GPT) 26 IU/L (3-49)
[2018-01-30 21:13] LABS: TROP-I INTERPRETATION NEGATIVE; TROPONIN-I < 0.01 ng/mL (0.0-0.30)
[2018-01-30 22:57] LABS: APPEARANCE CLEAR ((CLEAR)); BILIRUBIN NEGATIVE; BLOOD NEGATIVE; COLOR YELLOW ((YELLOW)); GLUCOSE (STRIP) NEGATIVE; KETONES NEGATIVE; LEUKOCYTES NEGATIVE; NITRITE NEGATIVE; PROTEIN (STRIP) NEGATIVE; UCUL ADDED? NO; UROBILINOGEN 0.2 MG/DL (0.2-1.0)
[2018-01-31] VITALS (8 sets, daily range): BP systolic 76–110; BP diastolic 50–67
[2018-01-31 06:25] LABS: HEMATOCRIT 25.3 % (36.0-46.0); MCH 29.6 PG (29.0-34.0); MCHC 31.6 G/DL (30.0-36.0); MCV 93.7 FL (83-99); PLATELET COUNT 281 K/uL (156-360); RBC DIS.WIDTH-CV 15.6 % (11.8-14.6); RBC DIS.WIDTH-SD 53.6 % (39-53); WHITE BLOOD COUNT 11.6 K/uL (4.1-10.2)
[2018-01-31 06:46] LABS: TROP-I INTERPRETATION NEGATIVE; TROPONIN-I 0.05 ng/mL (0.0-0.30)
[2018-01-31 06:54] LABS: CHLORIDE 108 MEQ/L (99-109); CREATININE 0.9 MG/DL (0.6-1.3); GFR ESTIMATE (CALCULATED) > 59 mL/min/; GLUCOSE 190 mg/dL (70-99); POTASSIUM 3.7 MEQ/L (3.7-5.4); SODIUM 139 MEQ/L (136-147); UREA NITROGEN (BUN) 15 mg/dL (9-23)
[2018-01-31 13:10] LABS: HEMATOCRIT 26.7 % (36.0-46.0); HEMOGLOBIN 8.4 G/DL (11.9-15.5)
[2018-01-31 13:26] LABS: TROP-I INTERPRETATION NEGATIVE; TROPONIN-I 0.06 ng/mL (0.0-0.30)
[2018-01-31 16:42] LABS: HEMATOCRIT 23.8 % (36.0-46.0); HEMOGLOBIN 7.5 G/DL (11.9-15.5); MCV 94.4 FL (83-99)
[2018-01-31 23:08] LABS: HEMATOCRIT 22.7 % (36.0-46.0); HEMOGLOBIN 7.4 G/DL (11.9-15.5); MCV 94.6 FL (83-99)
[2018-02-01 03:37] VITALS: BP 85/52
[2018-02-01 05:47] LABS: BASOPHIL (%) 0.1 % (0-1); EOSINOPHIL (%) 0 % (0-5); HEMATOCRIT 24.2 % (36.0-46.0); HEMOGLOBIN 7.6 G/DL (11.9-15.5); IMMATURE GRANULOCYTE (%) 1.9 % (0.0-0.7); LYMPHOCYTE (%) 7.6 % (15-42); LYMPHOCYTE COUNT 0.8 K/uL (1.0-2.8); MCH 29.7 PG (29.0-34.0); MCHC 31.4 G/DL (30.0-36.0); MCV 94.5 FL (83-99); MONOCYTE (%) 2.5 % (3-12); MONOCYTE COUNT 0.3 K/uL (0-0.8); NEUTROPHIL (%) 87.9 % (45-76); NEUTROPHIL COUNT 8.8 K/uL (1.8-6.4); PLATELET COUNT 297 K/uL (156-360); RBC DIS.WIDTH-CV 15.6 % (11.8-14.6); RBC DIS.WIDTH-SD 54.5 % (39-53); RED BLOOD COUNT 2.56 M/uL (3.80-5.20)
[2018-02-01 06:14] LABS: CHLORIDE 110 MEQ/L (99-109); CREATININE 0.8 MG/DL (0.6-1.3); GFR ESTIMATE (CALCULATED) > 59 mL/min/; GLUCOSE 267 mg/dL (70-99); POTASSIUM 4.4 MEQ/L (3.7-5.4); SODIUM 139 MEQ/L (136-147); UREA NITROGEN (BUN) 17 mg/dL (9-23)
[2018-02-01 09:40] VITALS: BP 88/52
[2018-02-01 12:06] VITALS: BP 82/55
[2018-02-01 16:42] VITALS: BP 88/54
[2018-02-01 20:19] VITALS: BP 82/50
[2018-02-01 23:49] VITALS: BP 79/50
[2018-02-02] VITALS (7 sets, daily range): BP systolic 84–125; BP diastolic 46–66
[2018-02-02 09:08] LABS: CHLORIDE 113 MEQ/L (99-109); CREATININE 0.8 MG/DL (0.6-1.3); GFR ESTIMATE (CALCULATED) > 59 mL/min/; POTASSIUM 4.2 MEQ/L (3.7-5.4); SODIUM 141 MEQ/L (136-147); UREA NITROGEN (BUN) 17 mg/dL (9-23)
[2018-02-02 09:09] LABS: GLUCOSE 117 mg/dL (70-99)
[2018-02-02 09:54] LABS: BASOPHIL (%) 0.1 % (0-1); EOSINOPHIL (%) 0.5 % (0-5); EOSINOPHIL COUNT 0.1 K/uL (0-0.3); HEMATOCRIT 25.6 % (36.0-46.0); HEMOGLOBIN 7.9 G/DL (11.9-15.5); IMMATURE GRANULOCYTE (%) 0.7 % (0.0-0.7); LYMPHOCYTE (%) 10.4 % (15-42); LYMPHOCYTE COUNT 1.4 K/uL (1.0-2.8); MCH 29.5 PG (29.0-34.0); MCHC 30.9 G/DL (30.0-36.0); MCV 95.5 FL (83-99); MONOCYTE (%) 6.1 % (3-12); MONOCYTE COUNT 0.8 K/uL (0-0.8); NEUTROPHIL (%) 82.2 % (45-76); NEUTROPHIL COUNT 11.2 K/uL (1.8-6.4); NRBC (%) 0.2 /100 WBC (0-0); PLATELET COUNT 269 K/uL (156-360); RBC DIS.WIDTH-SD 55.9 % (39-53); RED BLOOD COUNT 2.68 M/uL (3.80-5.20); WHITE BLOOD COUNT 13.7 K/uL (4.1-10.2)
[2018-02-03] VITALS (8 sets, daily range): BP systolic 70–102; BP diastolic 49–65
[2018-02-03 09:05] LABS: HEMATOCRIT 29.2 % (36.0-46.0); HEMOGLOBIN 9.3 G/DL (11.9-15.5); MCV 92.4 FL (83-99)
[2018-02-03 19:57] LABS: INTER. NORMALIZED RATIO 1.2
[2018-02-03 19:59] LABS: PTT 25.2 SEC (25-37)
[2018-02-04 03:59] VITALS: BP 80/49
[2018-02-04 08:50] VITALS: BP 82/49
[2018-02-04 19:33] VITALS: BP 81/50
[2018-02-04 23:14] VITALS: BP 90/50
[2018-02-05] VITALS (7 sets, daily range): BP systolic 70–96; BP diastolic 41–62
[2018-02-05 05:23] LABS: BASOPHIL (%) 0.2 % (0-1); EOSINOPHIL (%) 2.5 % (0-5); EOSINOPHIL COUNT 0.3 K/uL (0-0.3); HEMATOCRIT 24.8 % (36.0-46.0); HEMOGLOBIN 7.8 G/DL (11.9-15.5); IMMATURE GRANULOCYTE (%) 1.9 % (0.0-0.7); LYMPHOCYTE (%) 12.6 % (15-42); LYMPHOCYTE COUNT 1.5 K/uL (1.0-2.8); MCH 29.1 PG (29.0-34.0); MCHC 31.5 G/DL (30.0-36.0); MCV 92.5 FL (83-99); MONOCYTE (%) 6.8 % (3-12); MONOCYTE COUNT 0.8 K/uL (0-0.8); NEUTROPHIL COUNT 9.3 K/uL (1.8-6.4); NRBC (%) 0.7 /100 WBC (0-0); RBC DIS.WIDTH-CV 16.1 % (11.8-14.6); RBC DIS.WIDTH-SD 54.5 % (39-53); RED BLOOD COUNT 2.68 M/uL (3.80-5.20); WHITE BLOOD COUNT 12.3 K/uL (4.1-10.2)
[2018-02-05 05:42] LABS: CHLORIDE 108 MEQ/L (99-109); CREATININE 0.8 MG/DL (0.6-1.3); GFR ESTIMATE (CALCULATED) > 59 mL/min/; SODIUM 144 MEQ/L (136-147); UREA NITROGEN (BUN) 15 mg/dL (9-23)
[2018-02-05 05:56] LABS: GLUCOSE 87 mg/dL (70-99); POTASSIUM 3.3 MEQ/L (3.7-5.4)
[2018-02-05 06:36] LABS: ANISOCYTOSIS 1+; MACROCYTES 1+; PLAT.SUFFICIENCY ADEQUATE; POIKILOCYTOSIS 1+
[2018-02-05 06:48] LABS: PLATELET COUNT 188 K/uL (156-360)
[2018-02-05 12:47] LABS: APPEARANCE SL.HAZY ((CLEAR)); BILIRUBIN SMALL; BLOOD NEGATIVE; COLOR AMBER ((YELLOW)); GLUCOSE (STRIP) NEGATIVE; KETONES NEGATIVE; LEUKOCYTES NEGATIVE; NITRITE NEGATIVE; PROTEIN (STRIP) 30; SPECIFIC GRAVITY 1.021 (1.000-1.030)
[2018-02-05 13:06] LABS: EPITHELIAL CELLS 1+ /HPF; MUCUS NONE SEEN /LPF; RED BLOOD CELLS 0-5 /HPF (0-5)
[2018-02-05 13:07] LABS: AMORPHOUS URATES CRYSTALS 3+; BACTERIA 1+ /HPF; UCUL ADDED? YES
[2018-02-05 13:08] LABS: CALCIUM OXALATE CRYSTALS 1+ /HPF
[2018-02-05 20:59] LABS: HEMATOCRIT 25.5 % (36.0-46.0); HEMOGLOBIN 8.1 G/DL (11.9-15.5); MCH 29.5 PG (29.0-34.0); MCHC 31.8 G/DL (30.0-36.0); MCV 92.7 FL (83-99); NRBC (%) 0.6 /100 WBC (0-0); PLATELET COUNT 165 K/uL (156-360); RBC DIS.WIDTH-CV 16.5 % (11.8-14.6); RBC DIS.WIDTH-SD 55.2 % (39-53); RED BLOOD COUNT 2.75 M/uL (3.80-5.20); WHITE BLOOD COUNT 16.2 K/uL (4.1-10.2)
[2018-02-05 21:08] LABS: ALBUMIN 2.9 g/dL (3.2-4.8); CHLORIDE 106 mEq/L (99-109); SODIUM 139 mEq/L (136-147)
[2018-02-05 21:09] LABS: POTASSIUM 4.5 mEq/L (3.7-5.4)
[2018-02-05 21:10] LABS: TOTAL PROTEIN 5.5 g/dL (6.4-8.3)
[2018-02-05 21:14] LABS: CREATININE 0.9 mg/dL (0.6-1.3); GFR ESTIMATE (CALCULATED) > 59 mL/min/; GLUCOSE 221 mg/dL (70-99)
[2018-02-05 21:15] LABS: ALKALINE PHOSPHATASE 564 IU/L (3-129); TOTAL BILIRUBIN 2.5 mg/dL (0.0-1.0)
[2018-02-05 21:16] LABS: PTT 24.5 SEC (25-37)
[2018-02-05 21:18] LABS: ALT (GPT) 213 IU/L (3-49); AST (GOT) 345 IU/L (2-34); UREA NITROGEN (BUN) 24 mg/dL (9-23)
[2018-02-05 21:59] LABS: FIBRINOGEN 211 mg/dL (150-450)
[2018-02-06 05:05] VITALS: BP 72/43
[2018-02-06 05:16] LABS: BASOPHIL (%) 0.1 % (0-1); EOSINOPHIL (%) 1.9 % (0-5); EOSINOPHIL COUNT 0.3 K/uL (0-0.3); HEMOGLOBIN 8.1 G/DL (11.9-15.5); IMMATURE GRANULOCYTE (%) 3.7 % (0.0-0.7); LYMPHOCYTE (%) 13.8 % (15-42); LYMPHOCYTE COUNT 1.8 K/uL (1.0-2.8); MCH 29.2 PG (29.0-34.0); MCHC 31.2 G/DL (30.0-36.0); MCV 93.9 FL (83-99); MONOCYTE (%) 8.4 % (3-12); MONOCYTE COUNT 1.1 K/uL (0-0.8); NEUTROPHIL (%) 72.1 % (45-76); NEUTROPHIL COUNT 9.7 K/uL (1.8-6.4); PLATELET COUNT 153 K/uL (156-360); RBC DIS.WIDTH-CV 16.6 % (11.8-14.6); RBC DIS.WIDTH-SD 56.3 % (39-53); RED BLOOD COUNT 2.77 M/uL (3.80-5.20); WHITE BLOOD COUNT 13.4 K/uL (4.1-10.2)
[2018-02-06 06:47] LABS: CHLORIDE 105 MEQ/L (99-109); CREATININE 1.2 MG/DL (0.6-1.3); GFR ESTIMATE (CALCULATED) 46 mL/min/; GLUCOSE 175 mg/dL (70-99); POTASSIUM 4.2 MEQ/L (3.7-5.4); SODIUM 138 MEQ/L (136-147); UREA NITROGEN (BUN) 24 mg/dL (9-23)
[2018-02-06 08:13] VITALS: BP 106/54
[2018-02-06 08:38] LABS: ALBUMIN 2.8 G/DL (3.2-4.8); ALKALINE PHOSPHATASE 500 IU/L (3-129); ALT (GPT) 169 IU/L (3-49); AST (GOT) 243 IU/L (2-34); DIRECT BILIRUBIN 1.5 mg/dL (0.0-0.3); TOTAL BILIRUBIN 2.2 MG/DL (0.0-1.0); TOTAL PROTEIN 5.3 G/DL (6.4-8.3)
[2018-02-06 11:57] VITALS: BP 70/40
[2018-02-06 15:59] VITALS: BP 116/49
[2018-02-06 20:00] VITALS: BP 112/53
[2018-02-07 00:20] VITALS: BP 110/50
[2018-02-07 04:51] VITALS: BP 100/54
[2018-02-07 05:36] LABS: HEMATOCRIT 25.6 % (36.0-46.0); HEMOGLOBIN 7.9 G/DL (11.9-15.5); MCH 29.4 PG (29.0-34.0); MCHC 30.9 G/DL (30.0-36.0); MCV 95.2 FL (83-99); NRBC (%) 1.5 /100 WBC (0-0); PLATELET COUNT 126 K/uL (156-360); RBC DIS.WIDTH-SD 58.7 % (39-53); RED BLOOD COUNT 2.69 M/uL (3.80-5.20); WHITE BLOOD COUNT 18.6 K/uL (4.1-10.2)
[2018-02-07 06:06] LABS: CHLORIDE 101 MEQ/L (99-109); CREATININE 1.5 MG/DL (0.6-1.3); GFR ESTIMATE (CALCULATED) 36 mL/min/; GLUCOSE 208 mg/dL (70-99); POTASSIUM 4.4 MEQ/L (3.7-5.4); SODIUM 134 MEQ/L (136-147); UREA NITROGEN (BUN) 33 mg/dL (9-23)
[2018-02-07 06:43] LABS: ABS NEUTROPHIL COUNT 15.2; ANISOCYTOSIS 1+; ATYPICAL LYMPHOCYTE 0.9 %; BAND NEUTROPHILS 1.7 % (0-8.0); BURR CELLS 1+; EOSINOPHIL ABS CT 0; LYMPHOCYTES 7.9 % (15.0-45.0); METAMYELOCYTES 0.9 %; MONOCYTES 7.9 % (0-9.0); MYELOCYTES 0.9 %; PLAT.SUFFICIENCY DECREASED; POIKILOCYTOSIS 1+; POLYCHROMASIA 1+; SEG.NEUTROPHILS 79.8 % (46.0-76.0)
[2018-02-07 07:24] VITALS: BP 109/50
[2018-02-07 08:28] LABS: ALBUMIN 2.7 G/DL (3.2-4.8); ALKALINE PHOSPHATASE 433 IU/L (3-129); ALT (GPT) 146 IU/L (3-49); AST (GOT) 148 IU/L (2-34); DIRECT BILIRUBIN 1.3 mg/dL (0.0-0.3); TOTAL PROTEIN 5.2 G/DL (6.4-8.3)
[2018-02-07 16:40] VITALS: BP 112/52
[2018-02-08] MEDS ORDERED: HYOSCYAMINE0.125 M2 PO (15:51)
[2018-02-08] MEDS ORDERED: ATIVAN0.5 MG PO (15:51)
[2018-02-08] MEDS ORDERED: MORPHINE CON20 MG/M1 PO (15:51)
== END 2018-02-08 18:24 | disposition home or self-care (01) | DRG 252 ==
LOC: EME 17:09 → 4EAST 01-31 01:23 → EDOF 01-31 01:23 → ENRESERV 01-31 01:25 → 4EAST 01-31 02:11
PROVIDERS: Hospitalist; Internal Medicine Medical Oncology; Physician Assistant; Student in an Organized Health Care Education/Training Program
PROC: 06H03DZ Insertion of Intraluminal Device into Inferior Vena Cava, Percutaneous Approach (ICD-10-PCS; principal; 2018-01-31)
DX: I82.422 Acute embolism and thrombosis of left iliac vein (principal); I95.9 Hypotension, unspecified; K92.1 Melena; D62 Acute posthemorrhagic anemia; G89.4 Chronic pain syndrome; I26.99 Other pulmonary embolism without acute cor pulmonale; H91.90 Unspecified hearing loss, unspecified ear; I25.5 Ischemic cardiomyopathy; I13.0 Hypertensive heart and chronic kidney disease with heart failure and stage 1 through stage 4 chronic kidney disease, or unspecified chronic kidney disease; E11.22 Type 2 diabetes mellitus with diabetic chronic kidney disease; I25.10 Atherosclerotic heart disease of native coronary artery without angina pectoris; C55 Malignant neoplasm of uterus, part unspecified; C50.911 Malignant neoplasm of unspecified site of right female breast; C78.7 Secondary malignant neoplasm of liver and intrahepatic bile duct; R53.1 Weakness; I71.4 Abdominal aortic aneurysm, without rupture; R16.0 Hepatomegaly, not elsewhere classified; R26.2 Difficulty in walking, not elsewhere classified; E11.51 Type 2 diabetes mellitus with diabetic peripheral angiopathy without gangrene; A09 Infectious gastroenteritis and colitis, unspecified; I50.9 Heart failure, unspecified; N18.3 Chronic kidney disease, stage 3 (moderate); K25.4 Chronic or unspecified gastric ulcer with hemorrhage; E78.5 Hyperlipidemia, unspecified; F41.9 Anxiety disorder, unspecified; Z95.1 Presence of aortocoronary bypass graft; Z85.42 Personal history of malignant neoplasm of other parts of uterus; Z85.3 Personal history of malignant neoplasm of breast; Z17.0 Estrogen receptor positive status [ER+]; Z87.11 Personal history of peptic ulcer disease; Z51.5 Encounter for palliative care; Z86.718 Personal history of other venous thrombosis and embolism; Z87.891 Personal history of nicotine dependence; J45.909 Unspecified asthma, uncomplicated; D64.9 Anemia, unspecified; R09.02 Hypoxemia; K26.9 Duodenal ulcer, unspecified as acute or chronic, without hemorrhage or perforation
CPT/HCPCS: 70450; 70551; 71045; 71275; 74176; 76705; 77012; 80048; 80053; 80076; 80400; 81003; 82024 90; 82533 91; 82948; 83605; 84484; 85014; 85018; 85025; 85027; 85379; 85384; 85610; 85730; 86850; 86900; 86901; 86920; 87040; 87086; 88307; 88341 TC; 88342 TC; 93005; 93306; 93971; 94799; 99281; 99285; C1753; C1769; J0834; J1100; J1720; J1815; J2250; J2405; J3010; J7030; J7050; P9016